=== PATIENT | female | born 1985 | race Caucasian/White ===

== ENCOUNTER 2019-12-05 08:27 | Emergency (ER) | payer MEDICAID ==
[~2019-12-05] VITALS: Ht 162.6 cm; Wt 65.8 kg
[2019-12-05 08:50] VITALS: BP 136/68
--- NOTE | 2019-12-05 08:52 | NUR ---
ED Nurse Note:pt. came with rash on her body with itchiness
[2019-12-05] MEDS ORDERED: PERMETHRIN60 GM TOPIC (08:59)
[2019-12-05] MEDS ORDERED: BENADRYL25 MG ORAL (08:59)
--- NOTE | 2019-12-05 09:03 | Emergency Room Report ---
History of Present Illness General Chief Complaint: Skin Rash/Abscess Source: Patient Present Illness HPI 34-year female with history of IV drug abuse presents to emergency room with itching in scalp and concern for worms inside of her head. Patient reports that she has been seen at [facility] who stated that her symptoms are likely secondary to drug abuse. She feels as though she is removing mucus-like material that is from a mite or from warm like. She reported looking up symptoms and would like a antiparasitic. She denies any fevers, nausea, vomiting. She would like to go into a sober drug rehab program but they state they cannot accept her unless she is treated. She reports history of scabies and was unable to complete the treatment as she did not have been off of the treatment medication. Patient History Now: No Nursing Documentation-[facility] Past Medical History: No Stated History Review of Systems Constitutional: Denies: fever Eye: Denies: acuity changes Respiratory: Denies: cough, shortness of breath Cardiovascular: Denies: chest pain Gastrointestinal: Denies: nausea, vomiting Skin: Reports: rash, lesions Neurological: Denies: headache Physical Exam Vital Signs Date Time Temp Pulse Resp B/P (MAP) Pulse Ox O2 Delivery O2 Flow Rate FiO2 12/05/19 08:37 98.1 102 19 136/68 (90) 98 Room Air Sp02 EP Interpretation: reviewed, normal General Appearance: normal inspection, well appearing, no apparent distress, alert Head: normocephalic, atraumatic, other - No lice noted on exam ENT: EOM grossly intact, normal voice, moist mucus membranes Respiratory: no respiratory distress, speaking full sentences Cardiovascular #1: normal peripheral pulses Musculoskeletal: moves extm spontaneously Neurologic: no focal defects Skin: warm/dry, other - Multiple skin lesions on bilateral upper extremities consistent with IV drug abuse Medical Decision Making Diagnostic Impression: Primary Impression: Scabies exposure Additional Impressions: Itching Dermatitis ER Course 34-year-old female with history of IV drug abuse complaining of pruritus and concern for mites, worms. Exam has notable puncture wounds consistent with IV drug abuse Exam of skull noted to have no signs of lice Extremities likely have scabies rash however due to overlying puncture wounds unable to fully discern Patient symptoms likely secondary to drug abuse however given the history of scabies and incomplete treatment. Will give repeat treatment. Patient would like to obtain treatment at rehabilitation center. We will note that patient is medically cleared and discharge form after treatment for scabies , so she can obtain rehab. Last Vital Signs Date Time Temp Pulse Resp B/P (MAP) Pulse Ox O2 Delivery O2 Flow Rate FiO2 12/05/19 08:50 98.1 69 19 136/68 98 Room Air Disposition: HOME, SELF-CARE Condition: Stable Scripts Diphenhydramine Hcl* (BENADRYL*) 25 Mg Capsule 25 MG ORAL Q6H PRN for Itching, #30 CAP Prov: Cisco Partida M.D. 12/05/19 Permethrin* (ELIMITE*) 60 Gm Cream..g. 1 APPLIC TOPIC ONCE, #60 GM 1 Refill Apply cream from head to toe; leave on for 8-14 hours before washing off with water; may reapply in 1 week if live mites appear. Prov: Cisoc Partida M.D. 12/05/19 Patient Instructions: Rash Additional Instructions: Patient is medically clear for sober housing, or drug rehabilitation program. Cisco Partida M.D. Dec 05, 2019 09:03
[2019-12-05 09:11] VITALS: BP 136/68
--- NOTE | 2019-12-05 09:45 | NUR ---
ER DISCHARGE NOTE: Patient is cleared to be discharged per ERMD, pt is aox4, on room air, with stable vital signs. pt was given dc and prescription instructions, pt was able to verbalize understanding pt is able to ambulate with steady gait. pt took all belongings.
== END 2019-12-05 09:47 | disposition home or self-care (01) ==
LOC: EMR 08:57
DX: L29.9 Pruritus, unspecified (principal); L30.9 Dermatitis, unspecified
CPT/HCPCS: 99282